=== PATIENT | female | born 1965 | race Caucasian/White ===

== ENCOUNTER → 2018-05-17 | Outpatient (CLI) | payer OTHER ==
[2014-02-26 15:13] VITALS: BP 135/77
[~2018-05-17] MED LIST: ATOR20TA PO; CIPR500T94 PO; DICY10CA3 PO; FLUC150T PO; GABA300C18 PO; Hydrocodone/Acetaminophen PO; IBUP200T77 PO; INSU100I17 SQ; INSU100I27 SQ; LIPA1CAP8 PO; LIRA0.6P2 SQ; LOPE1TAB4 PO; LOSA-73 PO; METO50TA6 PO; MULT1TAB52 PO; NORE-68 PO; OMEP40CA5 PO; SITA100T PO; TAMS0.4C97 PO
--- NOTE | 2018-05-19 09:50 | SLEEP ---
DATE OF STUDY: 05/18/2018 REFERRING PHYSICIAN: SHANA Mccarty. The patient is 52-year-old who weighs 240 pounds and is 64 inches tall with a BMI of 41. The patient underwent home sleep study performed by [facility]. Total recording time was 392 minutes. During the night study, the patient had 49 obstructive apneas, no central apneas and 5 mixed apneas and 8 hypopneas. The patient's apnea hypopnea index was 9.5 per hour. Supine sleep was not seen. Nocturnal oximetry study revealed an average oxygen saturation of 92% with the lowest of 71%. Fifty three minutes were spent in oxygen saturation of less than 90%. Mean heart rate was 74 beats per minute. IMPRESSION: 1. Mild sleep apnea-hypopnea syndrome at an AHI of 9.5 per hour. 2. Nocturnal hypoxia secondary to obstructive sleep apnea. RECOMMENDATIONS: 1. The patient is clinically symptomatic with severe subjective hypersomnia with an [place] score of 19. I would recommend treating patient's sleep apnea either with a trial of oral appliance as recommended by the dentist versus a trial of CPAP titration. 2. The patient should be followed up after treatment to assess compliance and to document clinical improvement. 3. Weight loss is strongly advised. 4. Avoid [employer] depressants. 5. Caution regarding driving until symptoms of sleep apnea resolve with the above recommendations. CARI BELL MD DR: HEAVEN/margarito JOB#: [id number] / [id number] ALBA Lowe
== END | disposition home or self-care (01) ==
LOC: RT 07:51
PROVIDERS: ATTEND Internal Medicine Critical Care Medicine
DX: G47.33 Obstructive sleep apnea (adult) (pediatric) (principal)
CPT/HCPCS: G0399

== ENCOUNTER → 2019-03-08 | Outpatient (CLI) | payer OTHER ==
[2018-06-11 09:00] VITALS: BP 140/72
[~2019-03-08] MED LIST changes: +DULA1.5P SQ; +HYDR-3164 PO; +INSU100I30 SQ; +ONDA8TAB9 PO; +PIOG15TA63 PO
--- NOTE | 2019-03-10 13:53 | CARD ---
MR#: [id number] Date of Study: 03/08/2019 Ordering Physician: DORA SEARS, Referring Physician: DORA SEARS Tech: Jewels Kong RDCS APPROVED REPORT EXAM: Two-dimensional and M-mode echocardiogram with Doppler and color Doppler. Other Information Quality : AverageHR: 85bpm Rhythm : NSR INDICATION Dyspnea 2D DIMENSIONS RVDd3.0 (2.9-3.5cm)Left Atrium(2D)3.5 (1.6-4.0cm) IVSd1.2 (0.7-1.1cm)Aortic Root(2D)2.8 (2.0-3.7cm) LVDd4.4 (3.9-5.9cm)LVOT Diameter1.9 (1.8-2.4cm) PWd1.1 (0.7-1.1cm)LVDs3.1 (2.5-4.0cm) FS (%) 29.9 %SV49.6 ml LVEF(%)57.3 (>50%) M-Mode DIMENSIONS Left Atrium(MM)3.51 (2.5-4.0cm)Aortic Root2.78 (2.2-3.7cm) Aortic Valve AoV Peak Pj.133.6cm/sAoV VTI29.2cm AO Peak GR.7.1mmHgLVOT Peak Pj.85.0cm/s AO Mean GR.4mmHgAVA (VMAX)1.84cm2 MAURY (VTI)1.80cm2 Mitral Valve MV E Xhhvpwtf30.0cm/sMV DECEL [id number] MV A Cmwuoryi87.2cm/sE/A Ratio1.1 Pulmonary Valve PV Peak Jzwsvbsf46.9cm/s Pulmonary Vein S1 Ncumsjzw29.3cm/sD2 Rhofwymp02.7cm/s PVa [id number] LEFT VENTRICLE The left ventricle is normal size. There is mild concentric left ventricular hypertrophy. The left ve ntricular systolic function is normal and the ejection fraction is within normal range. The Ejection Fraction is 55-60%. There is normal LV segmental wall motion. Transmitral Doppler flow pattern is Gra de II-pseudonormal filling dynamics. RIGHT VENTRICLE The right ventricle is normal size. There is normal right ventricular wall thickness. The right ventr icular systolic function is normal. ATRIA The left atrium size is normal. The right atrium size is normal. The interatrial septum is intact wit h no evidence for an atrial septal defect or patent foramen ovale as noted on 2-D or Doppler imaging. AORTIC VALVE The aortic valve is normal in structure and function. The aortic valve is trileaflet. Doppler and Col or Flow revealed no significant aortic regurgitation. There is no significant aortic valvular stenosi s. There is no aortic valvular vegetation. MITRAL VALVE The mitral valve is normal in structure and function. There is no evidence of mitral valve prolapse. There is no mitral valve stenosis. Doppler and Color-flow revealed trace mitral regurgitation. TRICUSPID VALVE The tricuspid valve is normal in structure and function. Doppler and Color Flow revealed trace tricus pid regurgitation. There is no tricuspid valve prolapse or vegetation. There is no tricuspid valve st enosis. PULMONIC VALVE The pulmonic valve is not well visualized. GREAT VESSELS The aortic root is normal in size. The ascending aorta is normal in size. The IVC is normal in size a nd collapses >50% with inspiration. PERICARDIAL EFFUSION There is no evidence of significant pericardial effusion. Critical Notification Critical Value: No <Conclusion> The left ventricular systolic function is normal and the ejection fraction is within normal range. Th e Ejection Fraction is 55-60%. There is normal LV segmental wall motion. Signed by : Anatoly Morrow, Electronically Approved : 03/08/2019 11:42:28
== END | disposition home or self-care (01) ==
LOC: ECHO 10:48
PROVIDERS: ATTEND Internal Medicine Cardiovascular Disease
DX: I11.9 Hypertensive heart disease without heart failure (principal)
CPT/HCPCS: 93306

== ENCOUNTER → 2019-12-29 | Outpatient (CLI) | payer OTHER ==
[2019-08-21 11:00] VITALS: BP 116/66
[~2019-12-29] MED LIST changes: +ACET325T21 PO; +ALBU2.5V8 IH; +BENZ200C47 PO; +LEVO750T31 PO; +MULT-445 PO; -MULT1TAB52 PO; +OMEP40CA45 PO; -OMEP40CA5 PO; +PREG-9 PO; +PROM5SYR2 PO
--- NOTE | 2019-12-29 11:39 | CARD ---
MR#: [id number] Date of Study: 12/29/2019 Ordering Physician: SAWYER MARINA, Referring Physician: SAWYER MARINA, Tech: Sunita Ayala RDCS APPROVED REPORT EXAM: Two-dimensional and M-mode echocardiogram with Doppler and color Doppler. Other Information Quality : Good INDICATION Lower Extremity Edema 2D DIMENSIONS RVDd2.9 (2.9-3.5cm)Left Atrium(2D)3.7 (1.6-4.0cm) IVSd1.2 (0.7-1.1cm)Aortic Root(2D)2.6 (2.0-3.7cm) LVDd4.1 (3.9-5.9cm)LVOT Diameter2.0 (1.8-2.4cm) PWd1.1 (0.7-1.1cm)LVDs2.3 (2.5-4.0cm) FS (%) 30.0 %SV58.0 ml LVEF(%)60.0 (>50%) Aortic Valve AoV Peak Pj.132.0cm/sAoV VTI29.9cm AO Peak GR.7.0mmHgLVOT Peak Pj.114.9cm/s LVOT VTI 26.00cmAO Mean GR.4mmHg MAURY (VMAX)2.20xh4CNM (VTI)2.79cm2 Mitral Valve MV E Yxwgwtry60.0cm/sMV DECEL YRHX111pe MV A Onlpfcbb90.2cm/sMV AGY33aw E/A Ratio1.1MVA (PHT)3.92cm2 TDI E/Lateral E'7.7E/Medial E'11.5 Pulmonary Vein S1 Ionigfwu03.8cm/sD2 Uodzdivh66.3cm/s LEFT VENTRICLE The left ventricle is normal size. There is normal left ventricular wall thickness. The left ventricu lar systolic function is normal. The Ejection Fraction is 55-60%. There is normal LV segmental wall m otion. The left ventricular diastolic function and filling is normal for age. RIGHT VENTRICLE The right ventricle is normal size. The right ventricular systolic function is normal. ATRIA The left atrium size is normal. The right atrium size is normal. The interatrial septum is intact wit h no evidence for an atrial septal defect or patent foramen ovale as noted on 2-D or Doppler imaging. AORTIC VALVE The aortic valve is normal in structure and function. Doppler and Color Flow revealed no significant aortic regurgitation. There is no significant aortic valvular stenosis. MITRAL VALVE The mitral valve is normal in structure and function. There is no evidence of mitral valve prolapse. There is no mitral valve stenosis. Doppler and Color-flow revealed trace mitral regurgitation. TRICUSPID VALVE The tricuspid valve is normal in structure and function. Doppler and Color Flow revealed no tricuspid valve regurgitation noted. There is no tricuspid valve stenosis. PULMONIC VALVE The pulmonic valve is not well visualized. Doppler and Color Flow revealed no pulmonic valvular regur gitation. There is no pulmonic valvular stenosis. GREAT VESSELS The aortic root is normal in size. The ascending aorta is normal in size. The IVC is normal in size a nd collapses >50% with inspiration. PERICARDIAL EFFUSION There is no evidence of significant pericardial effusion. Critical Notification Critical Value: No <Conclusion> The left ventricular systolic function is normal. The Ejection Fraction is 55-60%. There is normal LV segmental wall motion. Doppler and Color-flow revealed trace mitral regurgitation. There is no evidence of significant pericardial effusion. Signed by : Albert Duffy, Electronically Approved : 12/29/2019 11:39:03
== END | disposition home or self-care (01) ==
LOC: ECHO 09:47
PROVIDERS: ATTEND Family Medicine
DX: M79.89 Other specified soft tissue disorders (principal)
CPT/HCPCS: 93306